=== PATIENT | male | born 1995 | race African-American/Black ===

== ENCOUNTER 2024-10-01 15:16 | Emergency (ER) | payer OTHER ==
[~2024-10-01] VITALS: Ht 167.6 cm; Wt 60.0 kg
[~2024-10-01 15:16] MED LIST: CEPH500C2 PO
[2024-10-01 15:24] VITALS: O2SAT 97
[2024-10-01 15:32] VITALS: BP 144/88; PULSE 89; RESP 14; TEMP 37; O2SAT 99
== END 2024-10-01 19:00 | disposition left against medical advice (07) ==
LOC: ER 15:16
DX: M79.601 Pain in right arm (principal); R21 Rash and other nonspecific skin eruption; J45.909 Unspecified asthma, uncomplicated
CPT/HCPCS: 73090; 99283